=== PATIENT | female | born 1970 | race Caucasian/White ===

== ENCOUNTER → 2020-07-14 | Outpatient (CLI) | payer BC, OTHER ==
[2020-07-15 08:13] LABS: HEP B CORE AB, TOT Negative (Negative)
[2020-07-15 10:13] LABS: HBSAG SCREEN Negative (Negative); HCV AB <0.1 (0.0-0.9)
[2020-07-17 19:08] LABS: QUANTIFERON MITOGEN VALUE >10.00 IU/mL (.); QUANTIFERON NIL VALUE 0.06 IU/mL (.); QUANTIFERON TB1 AG VALUE 0.06 IU/mL (.); QUANTIFERON TB2 AG VALUE 0.05 IU/mL (.); QUANTIFERON-TB GOLD PLUS Negative (Negative)
== END ==
LOC: LAB 11:26
PROVIDERS: Internal Medicine
DX: L40.50 Arthropathic psoriasis, unspecified (principal); D89.89 Other specified disorders involving the immune mechanism, not elsewhere classified; R76.8 Other specified abnormal immunological findings in serum; M25.50 Pain in unspecified joint; Z79.899 Other long term (current) drug therapy
CPT/HCPCS: 36415; 73630; 86704; 86803; 87340

== ENCOUNTER → 2020-10-14 | Outpatient (CLI) | payer BC, OTHER | LOC: EXRD 10:47 | DX: R06.09 Other forms of dyspnea (principal); I73.00 Raynaud's syndrome without gangrene; M32.9 Systemic lupus erythematosus, unspecified | CPT/HCPCS: 94010 ==

== ENCOUNTER → 2020-10-20 | Outpatient (CLI) | payer BC, OTHER | LOC: KOH-I 11:01 | DX: J84.10 Pulmonary fibrosis, unspecified (principal); J98.4 Other disorders of lung | CPT/HCPCS: 71250 ==

== ENCOUNTER → 2021-04-15 | Outpatient (CLI) | payer BC | LOC: ECHO 12:30 | DX: I73.00 Raynaud's syndrome without gangrene (principal); M32.9 Systemic lupus erythematosus, unspecified; R06.09 Other forms of dyspnea; I08.1 Rheumatic disorders of both mitral and tricuspid valves | CPT/HCPCS: ECHO; 93306 ==